=== PATIENT | male | born 1970 | race African-American/Black ===

== ENCOUNTER 2017-12-14 13:17 | Emergency (ER) | payer SELFPAY ==
[2017-12-14 13:50] LABS: #Basophils 0.1 thou/uL (0.0-0.2); #Eosinphils 0.2 thou/uL (0.0-0.7); #Lymphocytes 2.5 thou/uL (1.20-3.40); #Monocytes 0.7 thou/uL (0.11-0.59); #Neutrophils 5.7 thou/uL (1.40-6.50); %Basophils 1.6 % (0.0-1.0); %Eosinophils 1.7 % (0.0-10.0); %Lymphocytes 26.8 % (21.0-51.0); %Monocytes 7.3 % (0.0-10.0); %Neutrophils 62.5 % (42.0-75.0); Hemoglobin 15.1 g/dL (14.0-18.0); Mean Corpuscular HGB CONC 36.1 g/dL (32.0-36.0); Mean Corpuscular Hemoglobin 30.9 pg (27.0-31.0); Mean Corpuscular Volume 85.7 fL (78.0-98.0); Mean Platelet Volume 8.9 fL (7.4-10.4); Platelet Count 216 thou/uL (130-400); RBC Distribution Width 11.7 % (11.5-14.5); Red Blood Cell (RBC) Count 4.87 mill/uL (4.70-6.10); White Blood Cell (WBC) Count 9.2 thou/uL (4.8-10.8)
[2017-12-14] MEDS ORDERED: Ondansetron ODT 8 MG TAB ONE (14:12)
[2017-12-14] MEDS ORDERED: Insulin Regular 300 UNITS/3 ML VIAL ONE (14:12)
[2017-12-14 14:14] LABS: ALT (SGPT) 33 U/L (8-55); AST (SGOT) 26 U/L (5-34); Albumin 3.9 g/dL (3.5-5.0); Alkaline Phosphatase 137 U/L (40-150); Anion Gap 14 mmol/L (10-20); BUN (Urea Nitrogen) 15 mg/dL (8.9-20.6); Bilirubin, Total 0.4 mg/dL (0.2-1.2); Calc. Creatinine Clearance 0 mL/min (70-130); Calcium 9.1 mg/dL (7.8-10.44); Carbon Dioxide 24 mmol/L (22-29); Chloride 96 mmol/L (98-107); Estimated GFR-MDRD 75; Globulin 3.8 g/dL (2.4-3.5); Glucose 447 mg/dL (70-105); Magnesium 2.1 mg/dL (1.6-2.6); Phosphorus 2.9 mg/dL (2.3-4.7); Potassium 4.4 mmol/L (3.5-5.1); Protein, Total 7.7 g/dL (6.0-8.3); Sodium 130 mmol/L (136-145)
[2017-12-14 14:27] LABS: Base Excess-Venous 2.3 mmol/L (0 (+/- 2.5)); Calcium, Ionized 1.15 mmol/L (1.12-1.32); Hemoglobin - Calc 15.8 g/dL (12.0-18.0); O2 Tension (PvO2) 49.6 mmHg (35.0-45.0); Potassium 4.2 mmol/L (3.4-4.7); T. Carbon Dioxide 28.3 mmol/L (1.0-85.0); pH (Venous) 7.426 (7.35-7.45); vO2 Saturation-calc 85.5 % (94-98)
== END 2017-12-14 15:37 | disposition home or self-care (01) ==
LOC: ERS 13:17
DX: E11.65 Type 2 diabetes mellitus with hyperglycemia (principal); E78.5 Hyperlipidemia, unspecified; I10 Essential (primary) hypertension; M10.9 Gout, unspecified
CPT/HCPCS: 36415; 36416; 80053; 82010; 82330; 82803; 83735; 84100; 85025; 96360; 96372; J1815

== ENCOUNTER 2018-01-17 19:48 | Emergency (ER) | payer SELFPAY ==
[2018-01-17] MEDS ORDERED: Sodium Chloride 0.9% 100 ML ONE (20:25)
[2018-01-17] MEDS ORDERED: diphenhydrAMINE 50 MG/ML VIAL ONE (20:25)
[2018-01-17] MEDS ORDERED: Metoclopramide HCl 10 MG/2 ML VIAL ONE (20:25)
--- NOTE | 2018-01-17 20:33 | CT ---
CT HEAD NONCONTRAST: 01/17/18 HISTORY: Headache. FINDINGS: There is no evidence of acute intracranial hemorrhage or infarct. The ventricles appear normal in siz e, shape and position. There is no mass effect or shift of midline structures. IMPRESSION: No acute intracranial abnormalities are demonstrated on noncontrast CT head. POS: [facility]
[2018-01-17 20:52] LABS: Hemoglobin 14.3 g/dL (14.0-18.0); Mean Corpuscular HGB CONC 36.2 g/dL (32.0-36.0); Mean Corpuscular Hemoglobin 31.1 pg (27.0-31.0); Mean Corpuscular Volume 85.8 fL (78.0-98.0); Mean Platelet Volume 9.2 fL (7.4-10.4); Platelet Count 225 thou/uL (130-400); RBC Distribution Width 11.6 % (11.5-14.5); Red Blood Cell (RBC) Count 4.59 mill/uL (4.70-6.10); White Blood Cell (WBC) Count 10.9 thou/uL (4.8-10.8)
[2018-01-17 21:10] LABS: Band 2 % (5-11); Lymphocytes 31 % (21-51); MDiff Complete? YES; Monocytes 9 % (0-10); Neutrophil 58 % (42-75); Nucleated RBC 1 % (0); PLT Morphology Comment Appears Adequate; RBC Morphology Normal
[2018-01-17 21:24] LABS: ALT (SGPT) 23 U/L (8-55); AST (SGOT) 20 U/L (5-34); Alkaline Phosphatase 127 U/L (40-150); Anion Gap 16 mmol/L (10-20); BUN (Urea Nitrogen) 19 mg/dL (8.9-20.6); Bilirubin, Total 0.3 mg/dL (0.2-1.2); Calc. Creatinine Clearance 0 mL/min (70-130); Calcium 9.3 mg/dL (7.8-10.44); Carbon Dioxide 23 mmol/L (22-29); Chloride 97 mmol/L (98-107); Estimated GFR-MDRD 67; Glucose 282 mg/dL (70-105); Potassium 4.1 mmol/L (3.5-5.1); Sodium 132 mmol/L (136-145)
== END 2018-01-17 22:09 | disposition home or self-care (01) ==
LOC: ERS 19:48
DX: G43.909 Migraine, unspecified, not intractable, without status migrainosus (principal); E11.9 Type 2 diabetes mellitus without complications; E78.5 Hyperlipidemia, unspecified; I10 Essential (primary) hypertension; M10.9 Gout, unspecified
CPT/HCPCS: 36415; 70450; 80053; 85025; 96365; 96375; J1200; J2765; J7050

== ENCOUNTER 2018-07-14 17:48 | Emergency (ER) | payer SELFPAY ==
[2018-07-14 18:59] LABS: #Basophils 0.1 thou/uL (0.0-0.2); #Eosinphils 0.2 thou/uL (0.0-0.7); #Lymphocytes 2.7 thou/uL (1.20-3.40); #Monocytes 0.7 thou/uL (0.11-0.59); #Neutrophils 6.1 thou/uL (1.40-6.50); %Basophils 0.8 % (0.0-1.0); %Eosinophils 1.6 % (0.0-10.0); %Lymphocytes 27.9 % (21.0-51.0); %Monocytes 6.7 % (0.0-10.0); Hemoglobin 14.3 g/dL (14.0-18.0); Mean Corpuscular HGB CONC 35.5 g/dL (32.0-36.0); Mean Corpuscular Volume 87.5 fL (78.0-98.0); Mean Platelet Volume 9.5 fL (7.4-10.4); Platelet Count 216 thou/uL (130-400); RBC Distribution Width 11.9 % (11.5-14.5); Red Blood Cell (RBC) Count 4.61 mill/uL (4.70-6.10); White Blood Cell (WBC) Count 9.6 thou/uL (4.8-10.8)
[2018-07-14 19:21] LABS: ALT (SGPT) 32 U/L (8-55); AST (SGOT) 24 U/L (5-34); Albumin 3.7 g/dL (3.5-5.0); Alkaline Phosphatase 132 U/L (40-150); Anion Gap 17 mmol/L (10-20); BUN (Urea Nitrogen) 16 mg/dL (8.9-20.6); Bilirubin, Total 0.3 mg/dL (0.2-1.2); Calc. Creatinine Clearance 0 mL/min (70-130); Calcium 9.2 mg/dL (7.8-10.44); Carbon Dioxide 21 mmol/L (22-29); Chloride 98 mmol/L (98-107); Estimated GFR-MDRD 71; Glucose 446 mg/dL (70-105); Potassium 4.5 mmol/L (3.5-5.1); Protein, Total 7.7 g/dL (6.0-8.3); Sodium 131 mmol/L (136-145)
== END 2018-07-14 21:27 | disposition home or self-care (01) ==
LOC: ERS 17:48
DX: E11.65 Type 2 diabetes mellitus with hyperglycemia (principal); E78.5 Hyperlipidemia, unspecified; I10 Essential (primary) hypertension; M10.9 Gout, unspecified; Z79.4 Long term (current) use of insulin
CPT/HCPCS: 36416; 80053; 85025; 96360; 96361